=== PATIENT | female | born 1975 | race Caucasian/White ===

== ENCOUNTER 2017-01-29 23:56 | Inpatient (IN) | payer MEDICAID, OTHER ==
[2017-01-30] MEDS ORDERED: Clindamycin 900 MG IVPREMIX(* 900 MG/50 ML SDV IV ONE (01:34)
[2017-01-30] MEDS ORDERED: Ondansetron INJ* 2 MG/ML VIAL ONE (02:05)
[2017-01-30] MEDS ORDERED: Ondansetron INJ* 2 MG/ML VIAL IV ONE (02:08)
[2017-01-30 02:12] LABS: Hematocrit 32 % (35-47); Hemoglobin 10.5 g/dl (12.0-16.0); Mean Corpuscular HGB Conc 33 g/dl (31-36); Mean Corpuscular Hemoglobin 30 pg (27-31); Mean Corpuscular Volume 91 fL (80-97); Mean Platelet Volume 9 um3 (7.4-10.4); Red Blood Count 3.52 10^6/ul (4.0-5.4); Red Cell Distribution Width 14 % (10.5-15); White Blood Count 20.6 10^3/ul (3.5-10.8)
[2017-01-30 02:21] LABS: BUN/Creatinine Ratio 12.6 (8-20); Calcium 8.5 mg/dL (8.6-10.3); EGFR African American 92.3 (>60); EGFR Non-African American 71.8 (>60); Potassium 3.6 mmol/L (3.5-5.0)
[2017-01-30] MEDS ORDERED: NS 0.9% 1000 ML* 1,000 ML IV ONE ×2 (02:35→11:03)
[2017-01-30] MEDS ORDERED: Metoclopramide IV* 5 MG/ML 2 ML VIAL ONE (03:49)
[2017-01-30] MEDS ORDERED: Metoclopramide IV* 5 MG/ML 2 ML VIAL IV ONE (03:56)
[2017-01-30] MEDS ORDERED: Morphine INJ* 2 MG/ML 1 ML SYRINGE (TWO MG - NEW SYRINGE VERSION) IV PRN (04:15)
[2017-01-30] MEDS ORDERED: Ondansetron INJ* 2 MG/ML VIAL IV PRN (04:15)
[2017-01-30] MEDS ORDERED: Insulin LISPRO* 1 UNITS UNIT SUBCUT PRN (05:00)
[2017-01-30] MEDS ORDERED: Ketorolac INJ* 30 MG/ML 1 ML VIAL IV PUSH ONE (05:03)
--- NOTE | 2017-01-30 05:39 | ED ---
Jessica Lowe Thomas, scribed for Miguel Cooley MD on 01/30/17 at 0137 . Skin Complaint - HPI Summary HPI Summary: The pt is a 41 y/o F with a Hx of IDDM presenting to the ED c/o erythema to the site of her insulin pump on her right lower abdomen. She began to notice the area of erythema yesterday. She has mild pain to his area and it is warm. The patient removed the pump from the injection site yesterday, and the current location of the insulin pump is located lateral to the previous injection site. Prior to arrival, the patient has a fever, for which she has been taking ibuprofen and acetaminophen. The patients last blood glucose was 211. Pt denies CP, SOB, vomiting, abd pain, and diarrhea. - History of Current Complaint Chief Complaint: EDRashSkinAbscess Time Seen by Provider: 01/30/17 01:28 Stated Complaint: POSSIBLY INFECTED INSULIN PUMP Hx Obtained From: Patient Hx Last Menstrual Period: 09/25/12 Onset/Duration: Started Days Ago - 1, Still Present Timing: Constant Current Severity: Moderate Pain Intensity: 5 Pain Scale Used: 0-10 Numeric Skin Location: Other: - Right lower abdomen Character: Pain, Redness Aggravating Symptom(s): Nothing Associated Signs & Symptoms: Fever Related History: Diabetes - IDDM - Allergy/Home Medications Allergies/Adverse Reactions: Allergies Allergy/AdvReac Type Severity Reaction Status Date / Time No Known Allergies Allergy Verified 01/30/17 00:02 PMH/Surg Hx/FS Hx/Imm Hx Previously Healthy: No Endocrine/Hematology History: Reports: Hx Diabetes - Type I Denies: Hx Thyroid Disease Cardiovascular History: Denies: Hx Hypertension Respiratory History: Denies: Hx Asthma, Hx Chronic Obstructive Pulmonary Disease (COPD) GI History: Denies: Hx Ulcer - Surgical History Surgery Procedure, Year, and Place: C-SECTIONS X4, CHOLECYSTECTOMY Infectious Disease History: No Infectious Disease History: Denies: Hx Hepatitis, Hx Human Immunodeficiency Virus (HIV), History Other Infectious Disease, Traveled Outside the [place] in Last 30 Days - Family History Known Family History: Positive: Other - Patient denies relevant FHx - Social History Alcohol Use: Rare Hx Substance Use: No Substance Use Type: Reports: None Hx Tobacco Use: Yes Smoking Status (MU): Former Smoker Type: Cigarettes Amount Used/How Often: quit 2014 Review of Systems Positive: Fever Negative: Chest Pain Negative: Shortness Of Breath Negative: Abdominal Pain, Vomiting, Diarrhea Positive: Other - Area of erythema to right lower abdomen All Other Systems Reviewed And Are Negative: Yes Physical Exam Triage Information Reviewed: Yes Vital Signs On Initial Exam: Initial Vitals Temp Pulse Resp BP Pulse Ox 98.5 F 115 20 112/70 97 01/29/17 23:59 01/29/17 23:59 01/29/17 23:59 01/29/17 23:59 01/29/17 23:59 Vital Signs Reviewed: Yes Appearance: Positive: Well-Appearing, No Pain Distress Skin: Positive: Warm, Skin Color Reflects Adequate Perfusion, Dry, Other - The injection site of the removed insulin pump is in the right lower quadrant of the abdomen. There is some fluctuance. There is a surrounding wheel of erythema that measures 5 cm x 10 cm. There is an insulin pump attached lateral to it. There is not a lot of induration. It is warm and blanchable. There is no identifiable or palpable abscess. Head/Face: Positive: Normal Head/Face Inspection Eyes: Positive: EOMI, MONIKA ENT: Positive: Normal ENT inspection Neck: Positive: Supple, Nontender Respiratory/Lung Sounds: Positive: Clear to Auscultation, Breath Sounds Present Cardiovascular: Positive: RRR, Pulses are Symmetrical in both Upper and Lower Extremities Abdomen Description: Positive: Nontender, Soft Bowel Sounds: Positive: Present Musculoskeletal: Positive: Normal, Strength/ROM Intact Neurological: Positive: Normal, Sensory/Motor Intact, Alert, Oriented to Person Place, Time Diagnostics - Vital Signs Vital Signs Temp Pulse Resp BP Pulse Ox 01/29/17 23:59 98.5 F 115 20 112/70 97 - Laboratory Lab Results: Lab Results 01/30/17 01/30/17 Range/Units 01:50 01:50 WBC 20.6 H (3.5-10.8) 10^3/ul RBC 3.52 L (4.0-5.4) 10^6/ul Hgb 10.5 L (12.0-16.0) g/dl Hct 32 L (35-47) % MCV 91 (80-97) fL MCH 30 (27-31) pg MCHC 33 (31-36) g/dl RDW 14 (10.5-15) % Plt Count 317 (150-450) 10^3/ul MPV 9 (7.4-10.4) um3 Neut % (Auto) 95.3 H (38-83) % Lymph % (Auto) 2.9 L (25-47) % Routt % (Auto) 1.6 (1-9) % Eos % (Auto) 0 (0-6) % Baso % (Auto) 0.2 (0-2) % Absolute Neuts (auto) 19.6 H (1.5-7.7) 10^3/ul Absolute Lymphs (auto) 0.6 L (1.0-4.8) 10^3/ul Absolute Monos (auto) 0.3 (0-0.8) 10^3/ul Absolute Eos (auto) 0 (0-0.6) 10^3/ul Absolute Basos (auto) 0 (0-0.2) 10^3/ul Absolute Nucleated RBC 0 10^3/ul Nucleated RBC % 0 Sodium 130 L (133-145) mmol/L Potassium 3.6 (3.5-5.0) mmol/L Chloride 100 L (101-111) mmol/L Carbon Dioxide 22 (22-32) mmol/L Anion Gap 8 (2-11) mmol/L BUN 11 (6-24) mg/dL Creatinine 0.87 (0.51-0.95) mg/dL Est GFR ( Amer) 92.3 (>60) Est GFR (Non-Af Amer) 71.8 (>60) BUN/Creatinine Ratio 12.6 (8-20) Glucose 220 H (70-100) mg/dL Calcium 8.5 L (8.6-10.3) mg/dL Result Diagrams: 01/30/17 01:50 01/30/17 01:50 Lab Statement: Any lab studies that have been ordered have been reviewed, and results considered in the medical decision making process. Re-Evaluation - Re-Evaluation First Eval Re-Evaluation Time: 03:33 Change: Worse Comment: She "doesn't feel right" and would like to be admitted. Course/Dx - Course Assessment/Plan: I offered the patient admission initially but she wished to be discharged. Thru course she didnt improve much and now she would like to be admitted. The patient is a diabetic with increased sugar and cellulitis. WBC count is high. IV antibiotics were given. IV fluids were given for the sugar. AG of 8. Sugars up. - Differential Diagnoses - Skin Complaint Differential Diagnoses: Abscess, Cellulitis, Dehydration - Diagnoses Provider Diagnoses: Abdominal wall cellulitis, Type I diabetes mellitus, Hyperglycemia due to type 1 diabetes mellitus - Physician Notifications Discussed Care Of Patient With: Nguyen Frank Discharge - Discharge Plan Condition: Fair Disposition: ADMITTED TO [facility] Discharge Disposition Comment: By Dr. Frank. The documentation as recorded by the Jessica valdez Thomas accurately reflects the service I personally performed and the decisions made by Lenora argueta Kirk, MD.
[2017-01-30] MEDS: NS 0.9% 1000 ML* 1,000 ML IV SCH ×3 (05:55→20:13)
[2017-01-30] MEDS: Enoxaparin(*) 40 MG/0.4 ML SYR SUBCUT SCH (05:57)
--- NOTE | 2017-01-30 06:03 | HP ---
HISTORY AND PHYSICAL: DATE OF ADMISSION: 01/30/17 PRIMARY CARE PHYSICIAN: None. She just moved from [place]. CHIEF COMPLAINT: Redness in the abdominal area, possibility of infection. HISTORY OF PRESENT ILLNESS: Shellie Gonzalez is a 41-year-old diabetic type 1, on insulin pump, who noted redness of the site of where the pump was attached last. She had been having malaise for the past 24 hours and started getting nauseated today after she received intravenous antibiotics in the emergency department. She is going to be placed on overnight observation with diagnosis of cellulitis. PAST MEDICAL HISTORY: 1. History of diabetes, type 1, on insulin pump, being under the monitoring of [facility]. 2. Depression. 3. Status post cholecystectomy. 4. History of 4 C-sections. MEDICATIONS: Include: 1. Zofran on a p.r.n. basis. 2. Xanax 0.25 mg every 6 hours p.r.n. 3. Lexapro 20 mg daily. 4. Ibuprofen on a p.r.n. basis. 5. Insulin NovoLog via pump. 6. control pill 1 tablet daily. ALLERGIES: No known drug allergies. FAMILY HISTORY: Negative for heart disease, diabetes, or cancer in both parents. SOCIAL HISTORY: The patient denies any tobacco, alcohol, or drug use. 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 REVIEW OF SYSTEMS: Please see history of present illness. All the remaining 12 systems were reviewed with the patient and were otherwise negative. PHYSICAL EXAMINATION GENERAL: The patient is a very pleasant 41-year-old female who is in no acute distress. Alert, awake, and oriented x3. VITAL SIGNS: Blood pressure of 95/56, heart rate of 114 and regular, respiratory rate 20, oxygen saturation % on room air, temperature of 98.5. HEENT: Head: Atraumatic, normocephalic. Eyes: Pupils equal and reactive to light and accommodation. Oropharynx is clear. Mucosa is moist. NECK: Supple. No JVD. No bruit bilaterally. RESPIRATORY: Clear to auscultation bilaterally. CARDIOVASCULAR: Regular rate and rhythm. No murmur. ABDOMEN: Soft, nontender. Bowel sounds present in all 4 quadrants. The patient's insulin pump is located in the right lateral abdomen. Medially to this area and all the way to the patient's umbilicus, there is approximately 12- cm diameter area of redness and induration due to cellulitis. There is no evidence of subcutaneous fluctuation to suggest an abscess. The area is mildly tender to palpation superficially. EXTREMITIES: There is no edema. Pulses are +2 bilaterally. No clubbing or cyanosis. NEURO: Speech clear. Cranial nerves II through XII grossly intact. Motor strength is 5/5 bilaterally. SKIN: On evaluation of the skin, apart from the above mentioned area on the right abdomen, no other lesions were noted. LABORATORY DATA: Showed white blood cell count of 20.6, hemoglobin of 10.5, hematocrit of 32, and platelets of 317. Sodium is 130, potassium 3.6, chloride 100, carbon dioxide 22, BUN 11, creatinine 0.87. Glucose , calcium 8.5. ASSESSMENT AND PLAN: 1. Cellulitis of the abdominal wall. Likely due to infection after insulin pump insertion. At this point, the patient is going to be placed on overnight observation. She is going to be placed on intravenous hydration and continued with treatment with IV clindamycin. At this point despite having been nauseated , there is no indication chemically that the patient is in diabetic ketoacidosis. 2. For her depression, Lexapro is going to be continued. 3. The patient is at moderate risk for deep venous thrombosis and Lovenox is going to be started. 4. The patient's code status is full. Her surrogate is her . TIME SPENT: Approximately 62 minutes was spent on admission of this patient, more than half that time was spent [id number] with the patient during the interview and physical exam. [id number]/[facility] #: [id number] DAVID
[2017-01-30] MEDS: Citalopram TAB* 40 MG PO SCH (09:31)
[2017-01-30 10:00] LABS: Mean Corpuscular Hemoglobin 31 pg (27-31); Mean Platelet Volume 10 um3 (7.4-10.4)
[2017-01-30 10:02] LABS: Hematocrit 30 % (35-47); Mean Corpuscular HGB Conc 34 g/dl (31-36); Mean Corpuscular Volume 91 fL (80-97); Red Blood Count 3.26 10^6/ul (4.0-5.4); Red Cell Distribution Width 14 % (10.5-15); White Blood Count 29.9 10^3/ul (3.5-10.8)
[2017-01-30 10:10] LABS: Add Diff/Slide Review? Slide Review Added; Comments Flag Yes
[2017-01-30] MEDS: Clindamycin 600 MG IVPREMIX(* 600 MG/50 ML SDV IV SCH ×2 (10:23→17:53)
[2017-01-30] MEDS: Acetaminophen TAB* 325 MG PO PRN ×2 (10:29→20:12)
--- NOTE | 2017-01-30 10:38 | PN ---
Progress Note - Progress Note Date of Service: 01/30/17 SOAP: Subjective: Ms. Gonzalez is a 41 yo female with a history of Type I DM and depression who presented to the ED on 01/29 c/o erythema, warmth, and swelling of her RLQ of the abdomen where her insulin pump was previously placed. Patient was placed on IV antibiotics and IV hydration for a cellulitis infection. Patient then became nauseous and vomited three times. Patient was admitted for observation of the infection as well as supportive care. Today, patient states she feels well and denies fatigue, CP, palpitations, SOB, coughing, nausea, and abdominal pain. Ms. Bermudez states that site of infection becomes painful with movement. Also admits to soreness of the chest wall d/t retching. Also c/o intermittent chills. Objective: Vital Signs Temp Pulse Resp BP Pulse Ox 99.0 F 125 16 119/55 100 01/30/17 05:49 01/30/17 05:49 01/30/17 08:14 01/30/17 05:49 01/30/17 05:49 Laboratory Results - last 24 hr 01/30/17 01/30/17 01/30/17 01:50 01:50 04:19 WBC 20.6 H RBC 3.52 L Hgb 10.5 L Hct 32 L MCV 91 MCH 30 MCHC 33 RDW 14 Plt Count 317 MPV 9 Neut % (Auto) 95.3 H Lymph % (Auto) 2.9 L Taylor % (Auto) 1.6 Eos % (Auto) 0 Baso % (Auto) 0.2 Absolute Neuts (auto) 19.6 H Absolute Lymphs (auto) 0.6 L Absolute Monos (auto) 0.3 Absolute Eos (auto) 0 Absolute Basos (auto) 0 Absolute Nucleated RBC 0 Nucleated RBC % 0 Sodium 130 L Potassium 3.6 Chloride 100 L Carbon Dioxide 22 Anion Gap 8 BUN 11 Creatinine 0.87 Est GFR ( Amer) 92.3 Est GFR (Non-Af Amer) 71.8 BUN/Creatinine Ratio 12.6 Glucose 220 H POC Glucose (mg/dL) 189 H Calcium 8.5 L 01/30/17 01/30/17 07:51 08:44 WBC 29.9 H RBC 3.26 L Hgb 10.0 L Hct 30 L MCV 91 MCH 31 MCHC 34 RDW 14 Plt Count 295 MPV 10 Neut % (Auto) 95.2 H Lymph % (Auto) 1.8 L Taylor % (Auto) 2.4 Eos % (Auto) 0 Baso % (Auto) 0.6 Absolute Neuts (auto) 28.5 H Absolute Lymphs (auto) 0.5 L Absolute Monos (auto) 0.7 Absolute Eos (auto) 0 Absolute Basos (auto) 0.2 Absolute Nucleated RBC 0 Nucleated RBC % 0 Sodium Potassium Chloride Carbon Dioxide Anion Gap BUN Creatinine Est GFR ( Amer) Est GFR (Non-Af Amer) BUN/Creatinine Ratio Glucose POC Glucose (mg/dL) 198 H Calcium Active Medications Acetaminophen (Tylenol Tab*) 650 mg PO Q4H PRN PRN Reason: FEVER/PAIN Alprazolam (Xanax Tab*) 0.25 mg PO Q6H PRN PRN Reason: ANXIETY Citalopram Hydrobromide (Celexa Tab*) 40 mg PO DAILY [facility] Last Admin: 01/30/17 09:31 Dose: 40 mg Enoxaparin Sodium (Lovenox(*)) 40 mg SUBCUT Q24H [facility] Last Admin: 01/30/17 05:57 Dose: Not Given Ethinyl Estradiol/Desogestrel ([place]mo[place] 0.03/0.15 (Nf)) 1 tab PO QPM [facility] Clindamycin HCl/Dextrose (Cleocin 600 Mg Ivpremix(*) Sdv) 600 mg in 50 mls @ 100 mls/hr IV Q8H [facility] Sodium Chloride (Ns 0.9% 1000 Ml*) 1,000 mls @ 125 mls/hr IV PER RATE [facility] Last Admin: 01/30/17 05:55 Dose: 125 mls/hr Ibuprofen (Motrin Tab*) 600 mg PO Q6H PRN PRN Reason: PAIN Morphine Sulfate (Morphine Inj (Syringe)*) 1 mg IV Q4H PRN PRN Reason: PAIN Last Admin: 01/30/17 06:28 Dose: 1 mg Non-Formulary Medication (Insulin Aspart (Nf) [Novolog (Nf)]) 100 unit .SEE ORDER SEE INSTRUCTIONS [facility] Ondansetron HCl (Zofran Inj*) 4 mg IV Q6H PRN PRN Reason: NAUSEA Last Admin: 01/30/17 06:07 Dose: 4 mg HEENT: Mucous membranes are pink and moist. CV: Tachycardic, regular rhythm, w/o MRG Respiratory: CTA w/o RRW Skin: Area of erythema, warmth, and inflammation located to the RLQ of the abdomen that is outlined in marker; infection seems to be within the marker lines. Extremities: w/o edema Assessment: Ms. Gonzalez is a 41 yo female with a history of of Type I DM and depression who was admitted for a cellulitis infection located to the RLQ of the abdomen. Plan: 1. Cellulitis infection: Continue IV Clindamycin therapy 2. Type I DM: Continue insulin pump and Novolog therapy. 3. Depression and Anxiety: Continue Xanax and Celexa. 4. Nausea: Continue Zofran 5. Pain: Morphine prn 6. DVT Prohylaxis: Lovenox SQ
[2017-01-30 10:53] LABS: Calcium 8.2 mg/dL (8.6-10.3); EGFR African American 98.8 (>60); EGFR Non-African American 76.8 (>60); Potassium 3.7 mmol/L (3.5-5.0)
[2017-01-30 10:56] LABS: Hypochromasia 1+; Immature Granulocytes 14 % (0-9); Neutrophil % 76 % (38-83)
[2017-01-30] MEDS: Ibuprofen TAB* 600 MG PO PRN ×2 (11:01→17:57)
[2017-01-30] MEDS: ALPRAZolam TAB* 0.25 MG PO PRN ×2 (11:07→22:03)
--- NOTE | 2017-01-30 14:09 | PN ---
Subjective Date of Service: 01/30/17 Interval History: This is a 41 yo female with type I DM who presented with cellulitis around her pump site. She was admitted with n/v and high fevers. She has been started on clindamycin. This afternoon, she is feeling much better. She still had a fever to 102 this am. At this time she has minimal pain, no n/v, CP or SOB Objective Active Medications: Acetaminophen (Tylenol Tab*) 650 mg PO Q4H PRN PRN Reason: FEVER/PAIN Last Admin: 01/30/17 10:29 Dose: 650 mg Alprazolam (Xanax Tab*) 0.25 mg PO Q6H PRN PRN Reason: ANXIETY Last Admin: 01/30/17 11:07 Dose: 0.25 mg Citalopram Hydrobromide (Celexa Tab*) 40 mg PO DAILY [facility] Last Admin: 01/30/17 09:31 Dose: 40 mg Enoxaparin Sodium (Lovenox(*)) 40 mg SUBCUT Q24H [facility] Last Admin: 01/30/17 05:57 Dose: Not Given Ethinyl Estradiol/Desogestrel ([place]moquette 0.03/0.15 (Nf)) 1 tab PO QPM [facility] Clindamycin HCl/Dextrose (Cleocin 600 Mg Ivpremix(*) Sdv) 600 mg in 50 mls @ 100 mls/hr IV Q8H [facility] Last Admin: 01/30/17 10:23 Dose: 100 mls/hr Sodium Chloride (Ns 0.9% 1000 Ml*) 1,000 mls @ 125 mls/hr IV PER RATE [facility] Last Admin: 01/30/17 12:30 Dose: 125 mls/hr Ibuprofen (Motrin Tab*) 600 mg PO Q6H PRN PRN Reason: PAIN Last Admin: 01/30/17 11:01 Dose: 600 mg Insulin Human Lispro (Humalog*) 0 - 10 units SUBCUT . SEE COMMENTS PRN PRN Reason: TO REFILL INS. PUMP IF NEEDED Morphine Sulfate (Morphine Inj (Syringe)*) 1 mg IV Q4H PRN PRN Reason: PAIN Last Admin: 01/30/17 06:28 Dose: 1 mg Ondansetron HCl (Zofran Inj*) 4 mg IV Q6H PRN PRN Reason: NAUSEA Last Admin: 01/30/17 06:07 Dose: 4 mg Vital Signs: Temp Pulse Resp BP Pulse Ox 102.2 F 112 18 99/49 99 01/30/17 11:03 01/30/17 11:03 01/30/17 13:43 01/30/17 11:03 01/30/17 11:03 Oxygen Devices in Use Now: None Appearance: well appearing, in NAD Respiratory: Symmetrical Chest Expansion and Respiratory Effort, Clear to Auscultation Cardiovascular: NL Sounds; No Murmurs; No JVD, RRR Abdominal: NL Sounds; No Tenderness; No Distention, - - SQ insulin pump in R lateral abdomen Extremities: No Edema Skin: - - erythema over the right lateral portion of the abdomen, erythema extends slightly beyond the outlined region Neurological: Alert and Oriented x 3 Result Diagrams: 01/30/17 08:44 01/30/17 08:44 Additional Lab and Data: . Assess/Plan/Problems-Billing Assessment: This is a 41 yo female with type I DM who presents with sepsis secondary to cellulitis of the abd at the site of her insulin pump. - Patient Problems (1) Sepsis Comment: Secondary to cellulitis She met SIRS criteria with fever, tachycardia and leukocytosis and qSOFA score of 1 with tachypnea Hypotension was responsive to fluids Blood cultures drawn (2) Cellulitis Comment: Abdominal wall Improving with clindamycin (3) Type I diabetes mellitus Comment: Insulin pump in place Pump port is in place, skin surrounding access site is benign Will continue to allow patient to bolus through her pump at this time, but if glucose becomes difficult to manage, patient is agreeable to remove her pump and transition to SQ bolus management (4) Full code status (5) DVT prophylaxis Comment: SQ lovenox Status and Disposition: Observation. Possible discharge tomorrow.
[2017-01-30] MEDS: Ethinyl Estrad/Desogest 0.03/0.15 (NF) TAB PO SCH (17:51)
[2017-01-31] MEDS: Clindamycin 600 MG IVPREMIX(* 600 MG/50 ML SDV IV SCH ×2 (01:37→10:53)
[2017-01-31] MEDS: Ibuprofen TAB* 600 MG PO PRN ×4 (01:38→22:11)
[2017-01-31] MEDS: Enoxaparin(*) 40 MG/0.4 ML SYR SUBCUT SCH (03:34)
[2017-01-31] MEDS: NS 0.9% 1000 ML* 1,000 ML IV SCH ×2 (05:00→19:10)
[2017-01-31] MEDS: Acetaminophen TAB* 325 MG PO PRN ×3 (07:48→22:12)
[2017-01-31 08:48] LABS: Hematocrit 29 % (35-47); Hemoglobin 9.6 g/dl (12.0-16.0); Mean Corpuscular HGB Conc 33 g/dl (31-36); Mean Corpuscular Hemoglobin 30 pg (27-31); Mean Corpuscular Volume 91 fL (80-97); Mean Platelet Volume 9 um3 (7.4-10.4); Red Blood Count 3.17 10^6/ul (4.0-5.4); Red Cell Distribution Width 14 % (10.5-15); White Blood Count 23.7 10^3/ul (3.5-10.8)
[2017-01-31 08:50] LABS: Comments Flag Yes
[2017-01-31 08:59] LABS: BUN/Creatinine Ratio 8.6 (8-20); Calcium 8.2 mg/dL (8.6-10.3); EGFR African American 100.2 (>60); EGFR Non-African American 77.9 (>60); Potassium 3.1 mmol/L (3.5-5.0)
[2017-01-31] MEDS: Citalopram TAB* 40 MG PO SCH (09:06)
[2017-01-31] MEDS ORDERED: Potassium Chlor TAB* 20 MEQ TAB.ER PO ONE (10:11)
--- NOTE | 2017-01-31 10:21 | PN ---
Subjective Date of Service: 01/31/17 Interval History: HOSPITALIST PROGRESS NOTE Patient seen and examined at bedside. She feels a little worse today. Bodyaches, malaise, low grade fever this AM. Rash has spread beyond demarcation line, with lymphagitic streaks under her right breast. Area of erythema now developed blisters too. No purulence. Family History: Unchanged from Admission Social History: Unchanged from Admission Past Medical History: Unchanged from Admission Objective Active Medications: Acetaminophen (Tylenol Tab*) 650 mg PO Q4H PRN PRN Reason: FEVER/PAIN Last Admin: 01/31/17 07:48 Dose: 650 mg Alprazolam (Xanax Tab*) 0.25 mg PO Q6H PRN PRN Reason: ANXIETY Last Admin: 01/30/17 22:03 Dose: 0.25 mg Citalopram Hydrobromide (Celexa Tab*) 40 mg PO DAILY [facility] Last Admin: 01/31/17 09:06 Dose: 40 mg Enoxaparin Sodium (Lovenox(*)) 40 mg SUBCUT Q24H [facility] Last Admin: 01/31/17 03:34 Dose: Not Given Ethinyl Estradiol/Desogestrel (Emoquette 0.03/0.15 (Nf)) 1 tab PO QPM [facility] Last Admin: 01/30/17 17:51 Dose: Not Given Clindamycin HCl/Dextrose (Cleocin 600 Mg Ivpremix(*) Sdv) 600 mg in 50 mls @ 100 mls/hr IV Q8H [facility] Last Admin: 01/31/17 01:37 Dose: 100 mls/hr Sodium Chloride (Ns 0.9% 1000 Ml*) 1,000 mls @ 125 mls/hr IV PER RATE [facility] Last Admin: 01/31/17 05:00 Dose: 125 mls/hr Potassium Chloride (Potassium Chloride 10 Meq/50 Ml Ivpremix*) 10 meq in 50 mls @ 50 mls/hr IV Q1H [facility] Stop: 01/31/17 13:59 Ibuprofen (Motrin Tab*) 600 mg PO Q6H PRN PRN Reason: PAIN Last Admin: 01/31/17 07:51 Dose: 600 mg Insulin Human Lispro (Humalog*) 0 - 10 units SUBCUT . SEE COMMENTS PRN PRN Reason: TO REFILL INS. PUMP IF NEEDED Morphine Sulfate (Morphine Inj (Syringe)*) 1 mg IV Q4H PRN PRN Reason: PAIN Last Admin: 01/30/17 06:28 Dose: 1 mg Ondansetron HCl (Zofran Inj*) 4 mg IV Q6H PRN PRN Reason: NAUSEA Last Admin: 01/30/17 06:07 Dose: 4 mg Potassium Chloride (Klor Con Er Tab*) 40 meq PO ONCE ONE Stop: 01/31/17 10:12 Vital Signs 01/31/17 01/31/17 03:51 07:34 Temperature 98.7 F 100.5 F Pulse Rate 94 107 Respiratory 16 18 Rate Blood Pressure 105/53 125/56 (mmHg) O2 Sat by Pulse 98 97 Oximetry Oxygen Devices in Use Now: None Appearance: Pleasant lady sitting up in bed in NAD. Eyes: No Scleral Icterus Ears/Nose/Mouth/Throat: Mucous Membranes Moist Neck: Trachea Midline Respiratory: Symmetrical Chest Expansion and Respiratory Effort, Clear to Auscultation Cardiovascular: RRR - Normal S1 and S2 Abdominal: - - Erythematous rash on RLQ area, extending beyond demarcation line , with blisters containing clear fluid Neurological: Alert and Oriented x 3, NL Muscle Strength and Tone Result Diagrams: 01/31/17 08:03 01/31/17 08:03 Assess/Plan/Problems-Billing Assessment: Mrs. Gonzalez is a 41 yo female with type I DM (insulin pump), depression, who presented to ED with c/o fever and redness of the abdominal wall, found to have sepsis secondary to cellulitis. - Patient Problems (1) Sepsis Comment: - Met sepsis criteria on admission with fever, tachycardia and leukocytosis and qSOFA score of 1 with tachypnea. - Source is cellulitis. (2) Cellulitis Comment: - Abdominal wall cellulitis. - Suspect streptococcal infection - will change Clindamycin to Cefepime. - Blood cultures are pending. (3) Type I diabetes mellitus Comment: - Insulin pump in place, but not on the rash area. Skin surrounding access site is benign. - Glucose is controlled - patient will continue to manage her pump. (4) Hypokalemia Comment: - Replete. (5) DVT prophylaxis Comment: - Lovenox. (6) Full code status Status and Disposition: Change to inpatient.
[2017-01-31] MEDS ORDERED: Cefepime(*) 1 GM in NS 0.9% 50 ML* 50 ML IVPB SCH (10:30)
[2017-01-31] MEDS: Cefepime 1 GM in Dextrose(*) 1 GM/50 ML BAG IV SCH ×2 (11:48→15:55)
[2017-01-31] MEDS ORDERED: CEFEPIME 2 GM IM ONE ×2 (15:00)
[2017-01-31] MEDS ORDERED: KCL 10 MEQ/50 ML IVPREMIX* 10 MEQ/50 ML BAG ONE ×3 (17:12→22:27)
[2017-01-31] MEDS: KCL 10 MEQ/50 ML IVPREMIX* 10 MEQ/50 ML BAG IV SCH ×3 (17:23→23:08)
[2017-01-31] MEDS: Ethinyl Estrad/Desogest 0.03/0.15 (NF) TAB PO SCH (20:55)
[2017-01-31] MEDS: ALPRAZolam TAB* 0.25 MG PO PRN (22:12)
[2017-02-01] MEDS: Cefepime 1 GM in Dextrose(*) 1 GM/50 ML BAG IV SCH ×2 (02:18→15:28)
[2017-02-01] MEDS: NS 0.9% 1000 ML* 1,000 ML IV SCH (04:35)
[2017-02-01] MEDS: Enoxaparin(*) 40 MG/0.4 ML SYR SUBCUT SCH (04:37)
[2017-02-01 07:18] LABS: Hematocrit 26 % (35-47); Hemoglobin 8.8 g/dl (12.0-16.0); Mean Corpuscular HGB Conc 34 g/dl (31-36); Mean Corpuscular Hemoglobin 31 pg (27-31); Mean Corpuscular Volume 92 fL (80-97); Mean Platelet Volume 9 um3 (7.4-10.4); Red Blood Count 2.83 10^6/ul (4.0-5.4); Red Cell Distribution Width 14 % (10.5-15); White Blood Count 17.7 10^3/ul (3.5-10.8)
[2017-02-01 07:29] LABS: BUN/Creatinine Ratio 10.1 (8-20); Calcium 8.3 mg/dL (8.6-10.3); EGFR African American 120.6 (>60); EGFR Non-African American 93.8 (>60); Magnesium 1.8 mg/dL (1.9-2.7); Potassium 3.5 mmol/L (3.5-5.0)
[2017-02-01] MEDS ORDERED: Magnesium Oxide TAB* 400 MG PO ONE (08:22)
[2017-02-01] MEDS: Citalopram TAB* 40 MG PO SCH (08:22)
[2017-02-01] MEDS ORDERED: Potassium Chlor TAB* 20 MEQ TAB.ER PO ONE (08:22)
[2017-02-01] MEDS: Ibuprofen TAB* 600 MG PO PRN ×2 (08:22→18:36)
[2017-02-01] MEDS: Acetaminophen TAB* 325 MG PO PRN ×2 (08:23→18:35)
[2017-02-01] MEDS: ALPRAZolam TAB* 0.25 MG PO PRN ×2 (08:55→22:20)
--- NOTE | 2017-02-01 10:10 | PN ---
Subjective Date of Service: 02/01/17 Interval History: HOSPITALIST PROGRESS NOTE Patient seen and examined at bedside. She feels better today. Less body aches, remains afebrile, and rash is improving. Family History: Unchanged from Admission Social History: Unchanged from Admission Past Medical History: Unchanged from Admission Objective Active Medications: Acetaminophen (Tylenol Tab*) 650 mg PO Q4H PRN PRN Reason: FEVER/PAIN Last Admin: 02/01/17 08:23 Dose: 650 mg Alprazolam (Xanax Tab*) 0.25 mg PO Q6H PRN PRN Reason: ANXIETY Last Admin: 02/01/17 08:55 Dose: 0.25 mg Citalopram Hydrobromide (Celexa Tab*) 40 mg PO DAILY [facility] Last Admin: 02/01/17 08:22 Dose: 40 mg Enoxaparin Sodium (Lovenox(*)) 40 mg SUBCUT Q24H [facility] Last Admin: 02/01/17 04:37 Dose: Not Given Ethinyl Estradiol/Desogestrel ([place] 0.03/0.15 (Nf)) 1 tab PO QPM [facility] Last Admin: 01/31/17 20:55 Dose: Not Given Cefepime HCl (Maxipime 1 Gm In Dextrose Duplex (*)) 1 gm in 50 mls @ 100 mls/ hr IV 0300,1500 [facility] Last Admin: 02/01/17 02:18 Dose: 100 mls/hr Ibuprofen (Motrin Tab*) 600 mg PO Q6H PRN PRN Reason: PAIN Last Admin: 02/01/17 08:22 Dose: 600 mg Insulin Human Lispro (Humalog*) 0 - 10 units SUBCUT . SEE COMMENTS PRN PRN Reason: TO REFILL INS. PUMP IF NEEDED Morphine Sulfate (Morphine Inj (Syringe)*) 1 mg IV Q4H PRN PRN Reason: PAIN Last Admin: 01/30/17 06:28 Dose: 1 mg Ondansetron HCl (Zofran Inj*) 4 mg IV Q6H PRN PRN Reason: NAUSEA Last Admin: 01/30/17 06:07 Dose: 4 mg Vital Signs 02/01/17 02/01/17 02/01/17 03:30 07:34 08:55 Temperature 97.5 F 99.0 F Pulse Rate 86 95 Respiratory 16 18 18 Rate Blood Pressure 122/63 117/55 (mmHg) O2 Sat by Pulse 100 99 Oximetry Oxygen Devices in Use Now: None Appearance: Young lady sitting up in bed in NAD. Eyes: No Scleral Icterus Ears/Nose/Mouth/Throat: Mucous Membranes Moist Neck: Trachea Midline Respiratory: Symmetrical Chest Expansion and Respiratory Effort, Clear to Auscultation Cardiovascular: NL Sounds; No Murmurs; No JVD, RRR Abdominal: NL Sounds; No Tenderness; No Distention, - - RLQ rash is much improved, with less erythema, receding from demarcation lines, blisters present and intact Extremities: No Edema Neurological: Alert and Oriented x 3, NL Muscle Strength and Tone Result Diagrams: 02/01/17 07:00 02/01/17 07:00 Assess/Plan/Problems-Billing Assessment: Mrs. Gonzalez is a 41 yo female with type I DM (insulin pump), depression, who presented to ED with c/o fever and redness of the abdominal wall, found to have sepsis secondary to cellulitis. - Patient Problems (1) Sepsis Comment: - Met sepsis criteria on admission with fever, tachycardia and leukocytosis and qSOFA score of 1 with tachypnea. - Source is cellulitis. (2) Cellulitis Comment: - Abdominal wall cellulitis. - Suspect streptococcal infection - responding to Cefepime #2. - Blood cultures show no growth so far. (3) Type I diabetes mellitus Comment: - Insulin pump in place, but not on the rash area. Skin surrounding access site is benign. - Glucose is controlled - patient will continue to manage her pump. (4) Hypokalemia Comment: - Replete. (5) DVT prophylaxis Comment: - Lovenox. (6) Full code status Status and Disposition: Inpatient.
[2017-02-01] MEDS: Ethinyl Estrad/Desogest 0.03/0.15 (NF) TAB PO SCH (17:04)
[2017-02-02] MEDS: Cefepime 1 GM in Dextrose(*) 1 GM/50 ML BAG IV SCH (03:23)
[2017-02-02] MEDS: Enoxaparin(*) 40 MG/0.4 ML SYR SUBCUT SCH (05:38)
[2017-02-02 06:11] LABS: Hematocrit 28 % (35-47); Hemoglobin 9.3 g/dl (12.0-16.0); Mean Corpuscular HGB Conc 33 g/dl (31-36); Mean Corpuscular Hemoglobin 30 pg (27-31); Mean Corpuscular Volume 90 fL (80-97); Mean Platelet Volume 9 um3 (7.4-10.4); Red Blood Count 3.14 10^6/ul (4.0-5.4); Red Cell Distribution Width 14 % (10.5-15); White Blood Count 11.9 10^3/ul (3.5-10.8)
[2017-02-02 06:14] LABS: BUN/Creatinine Ratio 11.4 (8-20); Calcium 8.4 mg/dL (8.6-10.3); EGFR African American 118.6 (>60); EGFR Non-African American 92.2 (>60); Potassium 4.2 mmol/L (3.5-5.0)
[2017-02-02] MEDS: Citalopram TAB* 40 MG PO SCH (09:17)
[2017-02-02] MEDS ORDERED: Cephalexin CAP* 500 MG PO ONE (09:40)
[2017-02-02] MEDS ORDERED: Influenza VAC *QUAD* 2017-18* 0.5 ML SYRINGE IM ONE (10:00)
[2017-02-02 10:13] VITALS: BP 127/62
--- NOTE | 2017-02-04 02:55 | DS ---
CC: Dr. Katiana Tomlin, [facility], phone #[phone] * DISCHARGE SUMMARY: DATE OF ADMISSION: 01/30/17 DATE OF DISCHARGE: 02/03/17 PRIMARY CARE PROVIDER: Dr. Katiana Tomlin, [facility], phone #[phone]. DISCHARGE DIAGNOSES: 1. Sepsis. 2. Abdominal wall cellulitis. SECONDARY DIAGNOSES: 1. Type 1 diabetes. 2. Depression. 3. Status post cholecystectomy. 4. Status post 4 C-sections. MEDICATION LIST: 1. NovoLog by insulin pump 1 unit an hour plus sliding scale coverage according to pump settings. 2. Desogestrel and ethinyl estradiol 0.15/30 one tablet p.o. q.p.m. 3. Ibuprofen 600 mg p.o. q.6 hours p.r.n. pain. 4. Lexapro 20 mg p.o. daily. 5. Alprazolam 0.25 mg p.o. q.6 hours p.r.n. anxiety. NEW MEDICATIONS: 1. Bicitra 15 mL p.o. b.i.d. for 3 days. 2. Cephalexin 500 mg p.o. q.i.d. for 7 more days. HOSPITAL COURSE: Mrs. Gonzalez is a 41 years old lady with a past medical history as stated above that noticed some redness on the site where her pump was attached 24 hours prior to admission associated with nausea and malaise. She came to the emergency room for further evaluation and it was found to have cellulitis of the abdominal wall. She was admitted and started empirically on clindamycin. The patient met sepsis criteria on admission with fever, tachycardia, and leukocytosis. Initially, she had worsening of her rash with clindamycin and she was switched to cefepime with significant response. She became afebrile. Her white cell count trended down from 20.6 to 11.9 and she has significant improvement of her erythematous rash. The patient was felt to be medically stable for discharge today to follow up with her primary care provider. PHYSICAL EXAMINATION: Vital Signs: Temperature 98.1, heart rate is 72, respiratory rate is 16, oxygen saturation 98% on room air, blood pressure is 127 /62. General: The patient is a young lady sitting up in bed in no acute distress. CVS: Normal S1 and S2. Regular rate and rhythm. Chest: Breath sounds present bilaterally with no added sounds. Abdomen is soft. The patient has erythematous rash with blisters on the right lower quadrant, but this is much improved when compared to admission. Neuro: She is alert, oriented x3. Able to move all 4 extremities. DIET: Consistent carb diet. ACTIVITIES: As tolerated. DISPOSITION: To home. STATUS IN THE HOSPITAL: Inpatient. Please keep in mind this is a summarized version of this patient's hospital stay. If you need more information, please feel free to call me at [phone] or please obtain full medical records. TIME SPENT: Approximately 45 minutes was spent to complete this discharge. [id number]/CPS #: [id number] DAVID
== END 2017-02-02 12:25 | disposition home or self-care (01) | DRG 721 ==
LOC: ED 23:56 → MED 01-30 04:00 → OBSVTOIN 01-31 14:11
PROVIDERS: ADMIT Internal Medicine; ATTEND Internal Medicine
DX: T81.4XXA Infection following a procedure, initial encounter (principal); A41.9 Sepsis, unspecified organism; L03.311 Cellulitis of abdominal wall; I95.9 Hypotension, unspecified; Z96.41 Presence of insulin pump (external) (internal); F32.9 Major depressive disorder, single episode, unspecified; Y84.8 Other medical procedures as the cause of abnormal reaction of the patient, or of later complication, without mention of misadventure at the time of the procedure; E10.9 Type 1 diabetes mellitus without complications; E87.6 Hypokalemia; F41.9 Anxiety disorder, unspecified; R11.0 Nausea; Z90.49 Acquired absence of other specified parts of digestive tract; Z87.891 Personal history of nicotine dependence; Z23 Encounter for immunization; Y92.9 Unspecified place or not applicable
CPT/HCPCS: 36415; 80048; 83735; 85025; 87040; 90686; A9270-GY; G0378; J0692; J1650; J1885; J2270; J2405; J2765; J3480

== ENCOUNTER 2017-03-27 15:59 | Emergency (ER) | payer OTHER ==
[2017-03-27 16:11] VITALS: BP 123/73
--- NOTE | 2017-03-27 17:32 | UC ---
Charlie Lowe Stephanie, scribed for Dee Jay MD on 03/27/17 at 1720 . Back Pain HPI - HPI Summary HPI Summary: The pt is a 41 y/o F presenting to with c/o back pain that began 03/25/17. The pt reports carrying her 50 lb son up the stairs and felt pain in her upper R back near her R shoulder, also was doing some stretches to relieve sciatic pain earlier this week. The pt reports that her current pain is on the R side of her lower back. The pt reports that she was unable to ambulate on 03/25/17 and 03/26/17. Symptoms include increased urinary frequency. The pt denies history of back pain or strain. She denies increased pain with coughing or sneezing, pain with breathing, dysuria, fever, chills, body aches and GI symptoms. Aggravating factors include ambulation and movement. LKMP in early January--currently on continuous use ocp. The pt reports stretching to help ease the pain. Earlier in the week, after carrying her son, pain was under the right scapula. - History of Current Complaint Chief Complaint: UCGU Stated Complaint: back pain Time Seen by Provider: 03/27/17 16:58 Hx Obtained From: Patient Hx Last Menstrual Period: 01/30/17 ?: No Onset/Duration: Lasting Days - 2, Still Present Timing: Constant Severity Currently: Moderate Pain Intensity: 7 Pain Scale Used: 0-10 Numeric Aggravating Factor(s): Movement, Bending, Walking Alleviating Factor(s): Rest Associated Signs And Symptoms: Positive: Other - Negative:pain with breathing, dysuria, fever, chills, body aches and GI symptoms. Negative: Fever Related History: Previous Back Injury - has recurrent sciatica x year. - Allergies/Home Medications Allergies/Adverse Reactions: Allergies Allergy/AdvReac Type Severity Reaction Status Date / Time No Known Allergies Allergy Verified 03/27/17 16:11 PMH/Surg Hx/FS Hx/Imm Hx Endocrine History: Diabetes - Type 1 GI/ History: Other - history of UTI's Other GI/ History: UTI's in the past Neurological History: Other - sciatic issues Other Neurological History: "sciatic issues" Psychological History: Anxiety - Surgical History Surgical History: Yes Surgery Procedure, Year, and Place: C-SECTIONS X4, CHOLECYSTECTOMY - Family History Known Family History: Positive: Other - Patient denies relevant FHx Negative: Cardiac Disease - Social History Occupation: Unemployed Lives: With Family Alcohol Use: Rare Substance Use Type: None Smoking Status (MU): Former Smoker Type: Cigarettes Amount Used/How Often: quit 2014 - Immunization History Most Recent Influenza Vaccination: 2014 Most Recent Pneumonia Vaccination: never Review of Systems Constitutional: Negative Skin: Negative Eyes: Negative ENT: Negative Respiratory: Negative Cardiovascular: Negative Gastrointestinal: Negative Genitourinary: Frequency - increased Motor: Negative Neurovascular: Negative Musculoskeletal: Other: - back pain Neurological: Negative Psychological: Negative All Other Systems Reviewed And Are Negative: Yes Physical Exam Triage Information Reviewed: Yes Appearance: Well-Appearing, Pain Distress - mild, walking easily Vital Signs: Initial Vital Signs Temp 98.0 F 03/27/17 16:08 Pulse 100 03/27/17 16:08 Resp 16 03/27/17 16:08 BP 123/73 03/27/17 16:08 Pulse Ox 99 03/27/17 16:08 Eyes: Positive: Conjunctiva Clear ENT: Positive: Pharynx normal Respiratory: Positive: Lungs clear, Normal breath sounds Cardiovascular: Positive: RRR, No Murmur Abdomen Description: Positive: Nontender, No Organomegaly, Soft, CVA Tenderness (R) - mild tenderness.. Negative: Guarding Musculoskeletal: Positive: Strength Intact, ROM Limited @ - lumbar spine with FF to 30 degrees, precipitates pain. Pain with extension and lateral bending Full rom in both hips. SLR to 90 degrees without pain. Diagnostics - Laboratory Diagnostic Studies Completed/Ordered: UA normal aside from glucose spill Back Pain Course/Dx - Course Course Of Treatment: The pt is a 41 y/o F presenting to with c/o back pain that began 03/25/17. - Differential Dx/Diagnosis Differential Diagnosis/HQI/PQRI: Herniated Disc, Strain, Sprain Provider Diagnoses: mechanical low back pain Discharge - Discharge Plan Condition: Stable Disposition: HOME Patient Education Materials: Low Back Strain (ED), Lower Back Exercises (ED) Referrals: No Primary Care Phys,NOPCP [Primary Care Provider] - Additional Instructions: You can use ibuprofen 600mg 2 or 3 times daily for relief of pain for several weeks. Ensure that you stretch regularly, continue heat and warm baths. This will likely resolve in 10 to 14 days The documentation as recorded by the scribCharlie posey Stephanie accurately reflects the service I personally performed and the decisions made by me, Dee Jay MD.
== END 2017-03-27 17:58 | disposition home or self-care (01) ==
LOC: UCEAST 15:59
DX: M54.5 Low back pain (principal); E10.9 Type 1 diabetes mellitus without complications; F41.9 Anxiety disorder, unspecified; Z90.49 Acquired absence of other specified parts of digestive tract; Z87.891 Personal history of nicotine dependence; Z87.440 Personal history of urinary (tract) infections
CPT/HCPCS: 81003; 99211; G0463

== ENCOUNTER 2017-04-28 18:19 | Emergency (ER) | payer OTHER ==
[2017-04-28 20:22] VITALS: BP 130/78
[2017-04-28] MEDS ORDERED: Dexamethasone IV* 4 MG/ML 1 ML (4 MG) IM ONE (21:18)
--- NOTE | 2017-04-28 21:21 | UC ---
Respiratory Complaint HPI - HPI Summary HPI Summary: 41 year old female here with sore throat and cough that started two days ago. Reports sore throat worsened today and yesterday prompting her to come here. Reports discomfort over her chest, improved with NSAID. Denies sob, fever, chills, n/v or any other complaints. No dysphagia, odynophagia. No change in ET, AMIN, orthopnea or any other complaints. - History of Current Complaint Chief Complaint: UCRespiratory Stated Complaint: SORE THROAT Time Seen by Provider: 04/28/17 21:01 Hx Obtained From: Patient Hx Last Menstrual Period: 04/06/17 Onset/Duration: Gradual Onset Pain Intensity: 7 Alleviating Factors: Upright Position, Other - NSAID - Allergies/Home Medications Allergies/Adverse Reactions: Allergies Allergy/AdvReac Type Severity Reaction Status Date / Time No Known Allergies Allergy Verified 04/28/17 20:22 PMH/Surg Hx/FS Hx/Imm Hx Previously Healthy: No Endocrine History: Diabetes - Surgical History Surgical History: Yes Surgery Procedure, Year, and Place: C-SECTIONS X4, CHOLECYSTECTOMY - Family History Known Family History: Positive: None, Other - Patient denies relevant FHx Negative: Cardiac Disease - Social History Alcohol Use: Rare Substance Use Type: None Smoking Status (MU): Former Smoker Type: Cigarettes Amount Used/How Often: quit 2014 - Immunization History Most Recent Influenza Vaccination: 2014 Most Recent Pneumonia Vaccination: never Review of Systems Constitutional: Negative Skin: Negative Eyes: Negative ENT: Sore Throat Respiratory: Cough Cardiovascular: Negative Gastrointestinal: Negative Genitourinary: Negative Motor: Negative Neurovascular: Negative Musculoskeletal: Negative Neurological: Negative Psychological: Negative All Other Systems Reviewed And Are Negative: Yes Physical Exam Triage Information Reviewed: Yes Appearance: Well-Appearing, No Pain Distress Vital Signs: Initial Vital Signs Temp 36.9 C 04/28/17 20:19 Pulse 90 04/28/17 20:19 Resp 16 04/28/17 20:19 BP 130/78 04/28/17 20:19 Pulse Ox 98 04/28/17 20:19 ENT: Positive: Pharyngeal erythema. Negative: Nasal drainage, TM bulging, Tonsillar swelling, Tonsillar exudate, Hoarse voice, Sinus tenderness Respiratory Exam: Normal Cardiovascular Exam: Normal Abdominal Exam: Normal Musculoskeletal Exam: Normal Psychological Exam: Normal Skin Exam: Normal UC Diagnostic Evaluation - Laboratory O2 Sat by Pulse Oximetry: 98 - EKG Cardiac Rate: NL Cardiac Rhythm: Sinus: Normal Ectopy: None ST Segment: Normal Respiratory Course/Dx - Differential Dx/Diagnosis Differential Diagnosis/HQI/PQRI: Bronchitis, Laryngitis, Lower Resp Infection Provider Diagnoses: Pharyngitis. Will treat with decadron. Instructed patient about strict glycemic control as steroid might elevate glucose reading. EKG no sign of low voltage so no concern for pericardial effusion but pericarditis is possible diagnosis. Discharge - Discharge Plan Condition: Good Disposition: HOME Patient Education Materials: Pharyngitis (ED) Forms: *Work Release Referrals: No Primary Care Phys,NOPCP [Primary Care Provider] -
== END 2017-04-28 21:49 | disposition home or self-care (01) ==
LOC: UCEAST 18:19
DX: J02.9 Acute pharyngitis, unspecified (principal); E11.9 Type 2 diabetes mellitus without complications; Z87.891 Personal history of nicotine dependence
CPT/HCPCS: 93005; 96372; 99211; G0463; J1100